=== PATIENT | female | born 1990 | race Caucasian/White ===

== ENCOUNTER 2023-01-13 09:38 | Emergency (ER) | payer MEDICAID ==
[~2023-01-13] VITALS: Ht 175.3 cm; Wt 81.6 kg
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
[2023-01-13] MEDS ORDERED: ACETAMINOPHEN 500 MG TAB (TYLENOL) PO ONE (10:30)
[2023-01-13] MEDS ORDERED: TETANUS,DIPTH,PERTUSS P/F (BOOSTRIX) 0.5 ML VIAL IM ONE (10:30)
--- NOTE | 2023-01-13 10:48 | Diagnostic Imaging Report ---
EXAMINATION: Right hand 3 views HISTORY: punched a door COMPARISON: None available. FINDINGS: Alignment is normal. No fracture is seen. Joint spaces are normal. IMPRESSION: 1. No fracture. Dictated by: Dictated on workstation # [id number]
[2023-01-13 11:45] VITALS: BP 129/84
== END 2023-01-13 11:45 | disposition home or self-care (01) ==
LOC: ER 09:42
DX: S61.411A Laceration without foreign body of right hand, initial encounter (principal); F17.290 Nicotine dependence, other tobacco product, uncomplicated; Z28.310 Unvaccinated for COVID-19; Z23 Encounter for immunization; Y09 Assault by unspecified means
CPT/HCPCS: 73130; 90715